=== PATIENT | female | born 1970 | race Caucasian/White ===

== ENCOUNTER 2023-11-06 16:49 | Emergency (ER) | payer OTHER, SELFPAY ==
--- NOTE | ~2023-11-06 | US_ITS ---
EXAMINATION: US PELVIS CLINICAL INFORMATION: Pelvic pain COMPARISON: None available. TECHNIQUE: Ultrasound of the pelvis is performed using both transabdominal and transvaginal transducers along with Doppler. Transvaginal imaging is performed due to inadequate visualization transabdominally. FINDINGS: Uterus: The uterus has been surgically removed Adnexa: Right ovary measures 1.3 x 1.7 x 3.2 cm. There is a small paraovarian cyst measuring 1.3 x 1.5 x 1.4 cm. Left ovary is not visualized. There is no adnexal solid mass seen. There is small amount of free fluid in the pelvis. US/US pelvic and transvaginal IMPRESSION: Uterus has been removed. Right paraovarian cyst. Left ovary is not seen. Small amount of free fluid.
--- NOTE | ~2023-11-06 | XR_ITS ---
EXAMINATION: 1. RADIOGRAPHS LEFT KNEE 2. RADIOGRAPHS LEFT ANKLE CLINICAL INFORMATION: Pain COMPARISON: None TECHNIQUE: 4 views of the left knee and 3 views of left ankle were obtained. FINDINGS: Left knee: No fracture or dislocation. No suprapatellar joint effusion. Joint spaces are well-maintained. No significant degenerative changes of the left knee. Ill-defined sclerotic focus within the distal femur is nonspecific but may represent an enchondroma or bone infarct. Left ankle: Visualized portion of the distal tibia and fibula demonstrate no fracture. Ankle mortise is well-maintained. No localized soft tissue swelling. No radiopaque foreign body. No gross ankle joint effusion. XR/XR knee LT 3V IMPRESSION: 1. No fracture, dislocation or significant degenerative changes of the left knee. 2. Unremarkable radiographs of the left ankle.
--- NOTE | ~2023-11-06 | XR_ITS ---
EXAMINATION: 1. RADIOGRAPHS LEFT KNEE 2. RADIOGRAPHS LEFT ANKLE CLINICAL INFORMATION: Pain COMPARISON: None TECHNIQUE: 4 views of the left knee and 3 views of left ankle were obtained. FINDINGS: Left knee: No fracture or dislocation. No suprapatellar joint effusion. Joint spaces are well-maintained. No significant degenerative changes of the left knee. Ill-defined sclerotic focus within the distal femur is nonspecific but may represent an enchondroma or bone infarct. Left ankle: Visualized portion of the distal tibia and fibula demonstrate no fracture. Ankle mortise is well-maintained. No localized soft tissue swelling. No radiopaque foreign body. No gross ankle joint effusion. XR/XR ankle LT min 3V IMPRESSION: 1. No fracture, dislocation or significant degenerative changes of the left knee. 2. Unremarkable radiographs of the left ankle.
[2023-11-06 17:15] VITALS: BP 224/108; PULSE 104; O2SAT 98
[2023-11-06 17:33] VITALS: BP 172/99; PULSE 87; RESP 18; TEMP 36.9; O2SAT 99; BMI 36.0
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
[2023-11-06] MEDS: Butalb/Acetamin/Caff 50/325/40 TABLET 1 TAB PO (19:11)
[2023-11-06 19:15] VITALS: BP 187/89; PULSE 76; RESP 18; TEMP 36.5; O2SAT 98
[2023-11-06 19:28] LABS: Basophils Absolute Auto 0.1 X10*3/uL (0.0-0.2); Basophils Percent Auto 0.5 % (0-2); Eosinophils Absolute Auto 0.1 X10*3/uL (0.0-0.4); Eosinophils Percent Auto 0.8 % (0-4); Hemoglobin 14.5 g/dl (12.0-16.0); Imm Gran Abs Auto 0.07 X10*3/uL (0.00-0.03); Imm Gran Pct Auto 0.4 % (0.0-0.4); Lymphocytes Absolute Auto 5.4 X10*3/uL (1.2-4.9); Lymphocytes Percent Auto 34.3 % (20-40); MANUAL DIFF FLAG SCAN; Mean Corpuscular Hemoglobin 27.5 pg (27.0-33.0); Mean Corpuscular Volume 83.3 fL (80.0-98.0); Mean Platelet Volume 10.1 fL (9.4-12.3); Monocytes Absolute Auto 1.1 X10*3/uL (0.1-1.2); Monocytes Percent Auto 6.7 % (2-11); Neutrophils Absolute Auto 8.9 x10*3/uL (2.0-8.3); Neutrophils Percent Auto 57.3 % (45-73); Platelet Count 320 X10*3/uL (160-400); Red Blood Count 5.28 X10*6/uL (4.20-5.50); Red Cell Distribution Width 14.2 % (11.0-16.0); SCAN SMEAR FLAG 1; White Blood Count 15.6 X10*3/uL (4.8-10.8)
[2023-11-06 19:41] LABS: Appearance Urine Clear; Bacteria Urine None Seen (None Seen); Color Urine Yellow; Glucose Urine UA Negative (Negative); Hyaline Casts Urine 0-2 /LPF (0-2); Leukocyte Esterase Urine Negative (Negative); Nitrite Urine Negative (Negative); RBC Urine 0-2 /HPF (0-2); Squamous Epithelial Cell Urine 0-2 /HPF (0-2); Urine Blood Negative (Negative); Urine Ketones Trace mg/dL (Negative); Urine Protein Negative (Neg-Trace); WBC Urine 0-5 /HPF (0-5)
[2023-11-06 19:51] LABS: Alanine Aminotransferase 14 U/L (0-31); Albumin Level 4.2 g/dL (3.5-5.0); Alkaline Phosphatase 103 U/L (39-117); Anion Gap 11 (12-20); Aspartate Amino Transferase 13 U/L (5-31); Bilirubin Total 0.3 mg/dL (0.0-1.0); Blood Urea Nitrogen 8 mg/dL (9-16); Calcium 10.1 mg/dL (8.4-10.2); Carbon Dioxide 26 mmol/L (22-29); Chloride 106 mmol/L (96-108); Creatinine Clr Calc Pharmacy 105.5; Estimated Glomerular Filt Rate > 60; Glucose Random 142 mg/dL (60-115); Lipase 22 U/L (8-78); Potassium 4.4 mmol/L (3.3-5.1); Sodium 139 mmol/L (135-145); Total Protein 7.6 g/dL (6.5-8.0)
[2023-11-06 19:53] LABS: SLIDE REVIEW VERIFIED
[2023-11-06 19:56] LABS: B Type Natriuretic Peptide 12 pg/mL (<100)
[2023-11-06 19:59] LABS: Troponin-I High Sensitivity < 2.7 ng/L (<3.5-17.0)
[2023-11-06 21:25] VITALS: BP 189/77; PULSE 69; RESP 16; TEMP 36.6; O2SAT 98
[2023-11-06] MEDS: lisinopriL 10 MG TABLET PO (21:52)
[2023-11-06 22:59] VITALS: BP 191/84; PULSE 74; RESP 18; TEMP 36.5; O2SAT 96
[2023-11-07] MEDS: hydrALAZINE HCl 25 MG TABLET PO (00:09)
--- NOTE | 2023-11-07 00:12 | PC.NURSE ---
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 pt refused final set of vital signs pt provided with discharge packet pt verbalized understanding of discharge plan
[2023-11-07 00:14] VITALS: BP 191/84; PULSE 74; RESP 18; TEMP 36.5; O2SAT 96
[2023-11-07 09:52] LABS: CT PCR NOT DETECTED (Not Detect.); NG PCR NOT DETECTED (Not Detect.)
== END 2023-11-07 00:15 | disposition home or self-care (01) ==
PROVIDERS: Physician Assistant; Emergency Provider Emergency Medicine
DX: R51.9 Headache, unspecified (principal); R10.30 Lower abdominal pain, unspecified; N76.4 Abscess of vulva; N93.9 Abnormal uterine and vaginal bleeding, unspecified; I10 Essential (primary) hypertension; E11.9 Type 2 diabetes mellitus without complications; J45.909 Unspecified asthma, uncomplicated; Z72.89 Other problems related to lifestyle
CPT/HCPCS: 0353U; 36415; 73562; 73610; 76830; 76856; 80053; 81001; 83690; 83880; 84484; 85025; 99284